=== PATIENT | female | born 1980 | race Caucasian/White ===

== ENCOUNTER → 2016-08-31 | Outpatient (CLI) | payer MEDICAID ==
[~2016-08-31] MED LIST: ALDACTONE100 MG PO; ALDACTONE25 MG PO; ALDACTONE50 MG PO; B COMPLEX1 EACH PO; CIPRO250 M1 PO; CIPROFLOXACIN750 MG PO; CORGARD20 MG PO; FOLIC ACID1 MG PO; K-TAB 10MEQ10 MEQ PO; LACTULOSE10 GM/15 M PO; LASIX40 MG PO; LEXAPRO10 MG PO; LOVENOX 10100 MG/1 M; LOVENOX 10100 MG/1 M SUB-Q; NIACIN250 M1 PO; PANTOPRAZOLE SO40 MG PO; PREDNISOLO15 MG/5 M1 PO; PRILOSEC20 MG PO; PROAMATINE5 MG PO; PROPRANOLOL HCL20 MG PO; PROTONIX40 MG PO; REGLAN10 MG PO; SEROQUEL25 MG PO; SLOW-MAG (64 MG1 TAB PO; THIAMINE HCL100 MG PO; VITAMIN B COMP1 EACH PO
== END | disposition disaster alternative care site (69) ==
LOC: GOPD 08-30
PROC: 0W9G3ZZ Drainage of Peritoneal Cavity, Percutaneous Approach (ICD-10-PCS; principal; 2016-08-31)
DX: K74.60 Unspecified cirrhosis of liver (principal); K72.90 Hepatic failure, unspecified without coma; K70.10 Alcoholic hepatitis without ascites
CPT/HCPCS: P9047

== ENCOUNTER → 2016-09-21 | Outpatient (CLI) | payer MEDICAID | END | disposition disaster alternative care site (69) | LOC: GOPD 13:00 | PROC: 0W9G3ZZ Drainage of Peritoneal Cavity, Percutaneous Approach (ICD-10-PCS; principal; 2016-09-21) | DX: K74.60 Unspecified cirrhosis of liver (principal); K72.90 Hepatic failure, unspecified without coma | CPT/HCPCS: P9047 ==

== ENCOUNTER 2016-10-02 17:55 | Inpatient (IN) | payer MEDICAID ==
[~2016-10-02] VITALS: Ht 154.9 cm; Wt 58.0 kg
--- NOTE | ~2016-10-02 | CON ---
PATIENT'S NAME: INDIA UMANA [facility] AGE: 36 Y [address] ROOM: [place] [address] LOCATION: GICU ADMIT DATE: 10/02/2016 Consultation DISCHARGE DATE: 10/05/2016 FAMILY PHYSICIAN: Karishma Luna MD ATTENDING PHYSICIAN: Husam Arias DATE OF CONSULTATION: 10/04/2016 REFERRING PHYSICIAN: Becky Allison MD LOCATION: ICU, Room 6215. REFERRING PROVIDER: Tom Damon M.D. CHIEF COMPLAINT: Palliative Care referral for patient support. HISTORY OF PRESENT ILLNESS: The patient is a 36-year-old female with a history of alcoholic cirrhosis with recurrent ascites and previous history of spontaneous bacterial peritonitis. The patient was admitted with abdominal pain and probable SBP. She also has a history of esophageal varices. She has been following with a physician at [facility] for this. The patient reports she has been sober for 2 months. She lives at home. She has 2 children, ages 14 and 17, and she works as a massage therapist. The patient complains of abdominal pain, reports that the Dilaudid has been helpful, though it does make her sleepy and give her some slurred speech. She denies nausea or vomiting. Reports that her appetite is very poor at the hospital. Since admission, she has only taken in sips of fluids and popsicles. She does report having diarrhea with lactulose and intermittently skips a dose at home. The patient does talk about how embarrassing it is for her to go out in public with her ascites and jaundice and voices multiple other concerns. Given her chronic illness, Palliative Care has been consulted for additional support. PREVIOUS OPERATIONS: 1. Multiple paracentesis. 2. Multiple EGDs. PAST MEDICAL HISTORY: 1. Alcoholic cirrhosis. 2. History of alcohol abuse. 3. Depression. 4. Esophageal varices. 5. Hyponatremia. PATIENT'S NAME: INDIA UMANA [facility] AGE: 36 Y [address] ROOM: [place] [address] LOCATION: GICU ADMIT DATE: 10/02/2016 Consultation DISCHARGE DATE: 10/05/2016 FAMILY PHYSICIAN: Karishma Luna MD ATTENDING PHYSICIAN: Husam Arias MEDICATIONS: Please see current MAR. ALLERGIES: NO KNOWN ALLERGIES. SOCIAL HISTORY: The patient is . Lives at home. She does have 2 children, ages 14 and 17, who are currently with their father. She has a history of cigarette and alcohol abuse. The patient reports that her last drink was approximately 2 months ago. Denies illegal drugs. Denies narcotic abuse. Does have a history of smoking cigarettes on occasion. FAMILY HISTORY: Mother approximately 18 months ago with COPD. She also has fibromyalgia as well as narcotic abuse disorder. Her father is alive and well. REVIEW OF SYSTEMS: GENERAL: The patient reports her appetite is extremely poor. She does try to drink Boost at home, since the hospitalization has only taken in sips and bites. Positive for fatigue. Denies recent fever, chills, or night sweats. HEENT: Denies changes in vision or hearing. No headaches. No sinus congestion. RESPIRATORY: Denies shortness of breath or cough. CARDIOVASCULAR: No chest pain, pressure, or palpitations. Denies orthopnea. No peripheral edema. GASTROINTESTINAL: No nausea or vomiting. Does report diarrhea with her lactulose. Denies blood in her stools. Denies difficulties chewing or swallowing. Reports positive for abdominal pain that is sharp and crampy at times. GENITOURINARY: Denies dysuria. MUSCULOSKELETAL: Denies joint swelling or joint pain. No back pain. Does report having falls at home. No recent injuries to her knowledge. NEUROLOGIC: No numbness or tingling. No dizziness, syncope, or seizures. INTEGUMENTARY: No rashes. Does have skinned up areas to her rojas from crawling on the carpet. PSYCHIATRIC: Positive for history of depression. Denies feeling overtly depressed. Denies insomnia. PHYSICAL EXAMINATION: VITAL SIGNS: Blood pressure 106/62, heart rate 95, temperature 97.8, respirations 17, and O2 saturations 99% on room air. GENERAL: Reveals a drowsy, though easily arousable, oriented, white female, who is lying in intensive care unit, ill appearing, does not appear to be in PATIENT'S NAME: INDIA UMANA [facility] AGE: 36 Y [address] ROOM: [id number] [place] [id number] LOCATION: GICU ADMIT DATE: 10/02/2016 Consultation DISCHARGE DATE: 10/05/2016 FAMILY PHYSICIAN: Karishma Luna MD ATTENDING PHYSICIAN: Husam Arias any distress. She is oriented x3, though does repeat herself at times. HEENT: Normocephalic and atraumatic. Pupils are equal and reactive to light. Sclerae are icteric. Conjunctivae are pale. Tongue and mucous membranes are dry. Dentition is adequate. CARDIOVASCULAR: Heart tones regular rate and rhythm. I am not able to note a murmur. She is slightly tachycardic. RESPIRATORY: Respirations are regular and nonlabored. Lung sounds are clear to auscultation bilaterally. I am not able to note any rales, rhonchi, or wheezes. GASTROINTESTINAL: Abdomen is rounded, distended. Bowel sounds are hypoactive. Tender to diffuse palpation. MUSCULOSKELETAL: No significant deformities. Peripheral pulses are strong and equal bilaterally. There is no clubbing, cyanosis, or edema. SKIN: Warm and dry. She does have diffuse jaundice and almost a greenish tint to her skin. She does also use a tanning bed frequently. NEUROLOGIC: Grossly intact. IMPRESSION AND PLAN: 1. Abdominal pain. Continue with p.r.n. morphine and Dilaudid as needed. 2. Ascites. 3. Code status. The patient is a full code. She does not have an advance directive or a living will. I visited with the patient, introduced the role of palliative care for additional support. Discussed her chronic conditions and her understanding of her condition. At this point, she does seem to have a fairly good understanding of what is going on and what she faces. I talked through some of her worries, concerns, and fears. She talks extensively about how difficult it is to be out in public with her jaundice and ascites, and try to maintain a normal life with working and caring for her children. I visited with the patient about her past history as well as her goals moving forward. She tells me that she is working towards evaluation for a possible transplant. She understands that she has to be sober for 6 months. Did also visit with the patient on the importance of getting an advance directive or a living will in place for anyone especially someone with chronic illness. She does tell me that she would want her father to be her power of patent attorney and if he is unable, then her older sister. In discussing this, she does become tearful and talks about how she wants to donate her body to science and how she wants to be cremated. Following this, the patient does talk about being worried about having her children see her on the ventilator, should something happen, helped the patient talk through this worry. She does tell me that she would not want to be kept alive on life support if she was not able to be aware enough to know her children and her surroundings. The patient does ask for help in completing [id number] paperwork later during the hospital stay when she is feeling a little bit better. Provided emotional support and PATIENT'S NAME: INDIA UMANA [facility] AGE: 36 Y [address] [place]OM: [id number] [address] LOCATION: [facility] ADMIT DATE: 10/02/2016 Consultation DISCHARGE DATE: 10/05/2016 FAMILY PHYSICIAN: Karishma Luna MD ATTENDING PHYSICIAN: Husam Arias active listening. The patient states that her goal is to get to liver transplant. She wants to fight for this and thinks that she can do it. Provided encouragement and support in regard to this. The patient denies any spiritual needs or any other concerns at this time. She is thankful for the visit and does ask for followup. Total visit was 50 minutes. Greater than 50% of this time was spent providing education and counseling. Thank you for allowing me to assist the patient and her family. ELIZABETH HANNA, ENRICO FOR STEF NULL MD DLS/modl /[id number] CC: Tom Damon MD d: 10/08/16 2148 t: 10/11/16 1132, CONSULTATION REPORT
--- NOTE | ~2016-10-02 | DS ---
PATIENT'S NAME: INDIA UMANA [facility] AGE: 36 Y [address] ROOM: [id number] [place], [place] [address] LOCATION: [facility] ADMIT DATE: 10/02/2016 Discharge Summary DISCHARGE DATE: 10/05/2016 FAMILY PHYSICIAN: Karishma Luna MD ATTENDING PHYSICIAN: Husam Arias PRIMARY DIAGNOSES: 1. Septic shock. 2. Other primary diagnoses include spontaneous bacterial peritonitis. 3. Alcoholic liver cirrhosis with massive ascites. 4. Protein-calorie malnutrition. 5. Chronic anemia from blood loss. 6. Hepatorenal syndrome. 7. Thrombocytopenia. 8. Chronic hyponatremia. 9. Hypoalbuminemia. PRINCIPAL PROCEDURES: Done for the patient include paracentesis and PowerGlide placement. Transfusion with 2 units of fresh frozen plasma. LABORATORY DATA: Lactic acid on admission was 3.2, prior to transfer was 2.3. WBC on admission was 13.5, highest level obtained was 15.5, prior to transfer was 12.2. H and H on admission were 10.5 and 30.4, prior to transfer were 8.2 and 23.9. Platelet on admission was 131, prior to transfer was 49. Creatinine on admission was 1.2, prior to transfer was 0.9. Sodium on admission was 128, prior to transfer was 133. BUN was stable at 17 throughout the hospital stay. Bicarb on admission was 18, prior to transfer was 15. Potassium as well was stable throughout the hospital stay and 3.8 upon admission. Liver function test a day after admission was AST 71, prior to transfer was 33; ALT was 68, prior to transfer was 39; alkaline phosphatase was 94 on admission, prior to transfer was 68. Total bilirubin on admission was 13.6, prior to transfer was 19.3. Phosphorus was 3.3. Direct bilirubin was 8.9. Albumin was 1.7 on admission. Magnesium on admission was 1.7, was repleted. INR on admission was 1.7, prior to transfer was 1.64. UA, color was lizett, pH 6.0, leukocytes 100, nitrite positive, wbc's 2 to 5, serum osmolality 270. Ascitic fluid analysis; yellow, wbc 746, neutrophil differential 83%, turbid 2+. Microbiology; blood culture x2 sets, no growth. Pleural fluid culture, no growth at 2 days. Urine culture, no growth at 2 days. RADIOLOGY: Abdominal ultrasound for drain. Ultrasound-guided paracentesis with drainage of about 4400 mL, about 3400 straw colored ascites was removed. HOSPITAL COURSE: For history of present illness, please take a look at the H and P, which was done by Dr. Arias. The patient was admitted to ICU PATIENT'S NAME: INDIA UMANA [facility] AGE: 36 Y [address] ROOM: [address] [address] LOCATION: GICU ADMIT DATE: 10/02/2016 Discharge Summary DISCHARGE DATE: 10/05/2016 FAMILY PHYSICIAN: Karishma Luna MD ATTENDING PHYSICIAN: Husam Arias for septic shock, which was thought secondary to a spontaneous bacterial peritonitis as a result of presenting symptoms of generalized abdominal pain and also on physical exam with generalized abdominal tenderness. So, she was started on Levophed, first day of the hospital stay, had a Gastroenterology consult and also was started on Rocephin 2 grams per peritonitis does. GI continued to follow up with the patient. By the next day of the hospital stay, the patient demand of pressors, had improved; however, she was still on pressors. She did have an abdominal paracentesis done with removal of 3400 mL of straw-colored ascitic tap. The analysis of the ascitic appeared to be a picture of spontaneous bacterial peritonitis and also given her clinical symptoms. Following the paracentesis, she was transfused with 4.5 grams of albumin. However, during her short stay, her hemoglobin continued to trickle down slowly. Her hemoglobin on admission was 10.2, prior to transfer was 8.2. However, throughout her hospital stay, she did not have any bowel movement and so we were unable to obtain stool for occult blood. Eventually, by the second day of hospital stay, she was successfully weaned off Levophed. Her white cell count had improved, but her complaint of abdominal pain still persisted. By the third day of hospital stay, she was ready to be transferred out of the ICU to [facility], however, given the fact the patient's total bilirubin was increasing and with worsening abdominal pain and also with associated decrease in her hemoglobin, they felt that the patient would be better if she was at a higher level of care and so they recommended for the patient either to be transferred to [facility] or for us to get an ID consult regarding the spontaneous bacterial peritonitis. However, we eventually settled for transfer to [facility]. The patient was accepted by Dr. Parra, the dance director. The plan was prior to transfer was for the patient to have another abdominal paracentesis done as the ascitic fluid had reaccumulated. However, as everything was set up for the patient to be transferred, this was postponed till when the patient gets to [facility] for the paracentesis to be done as not to further delay the patient's transportation while trying to get it done here. Vital signs were stable at the point of transfer and the patient was transferred to [facility]. MEDICATIONS ON TRANSFER: 1. Lexapro 5 mg p.o. daily. 2. Folic acid 1 mg p.o. daily. 3. Rocephin 2 grams IV twice daily. 4. Lactulose 30 mL p.o. q.6 hours. 5. Nadolol 20 mg p.o. daily. 6. Reglan 5 mg p.o. q.8 hours. 7. Protonix 40 mg IV. 8. Lidocaine. 9. Morphine 1 mg every 2 hours p.r.n. PATIENT'S NAME: INDIA UMANA [facility] AGE: 36 Y [address] ROOM: [place] [address] LOCATION: [facility] ADMIT DATE: 10/02/2016 Discharge Summary DISCHARGE DATE: 10/05/2016 FAMILY PHYSICIAN: Karishma Luna MD ATTENDING PHYSICIAN: Husam Arias MD VIKI ANGULO/evangelina /[id number] d: 10/05/162 t: 10/18/16 1641, DISCHARGE SUMMARY
--- NOTE | ~2016-10-02 | CON ---
PATIENT'S NAME: INDIA UMANA [facility] AGE: 36 Y [address] ROOM: [id number] [place], [place] [address] LOCATION: GICU ADMIT DATE: 10/02/2016 Consultation DISCHARGE DATE: FAMILY PHYSICIAN: NAEL JAIME MD ATTENDING PHYSICIAN: HAMZAH DAMON DATE OF CONSULTATION: 10/03/2016 REFERRING PHYSICIAN: CAROLINA DUMONT MD HOSPITAL CONSULTATION REFERRING PROVIDER: Tom Damon MD REASON FOR CONSULTATION: Alcoholic liver cirrhosis. HISTORY OF PRESENT ILLNESS: This is a pleasant 36-year-old female, who is well known to our clinic. She has a longstanding history of alcohol abuse, and decompensated alcoholic cirrhosis with refractory ascites. The patient also has had a history of spontaneous bacterial peritonitis and history of esophageal variceal banding ligation. The patient states over the past 2 to 3 days, she has not been feeling well with increasing abdominal distention. She was seen in the emergency room at [place] with acute abdominal pain, vomiting, loose stools, and hypotension. The patient did report some fever, chills prior to admission. She denies any hematemesis, melenic stool, or hematochezia. The patient was then transferred to [facility] for further workup. She will undergo an abdominal paracentesis with peritoneal fluid analysis though this is pending due to her receipt of INR. The patient states that she has been feeling significantly fatigued over the last few days. She also has experiences of greater heartburn over the last week. The patient does follow up with regarding her liver as she states that she has been sober for 2 months now. Complete liver transplant evaluation will not be done until 6 months sobriety. In review of records last known paracentesis was on 09/21/2016 with 4300 mL removed. Per review of record, she did also undergo an upper endoscopy on 06/19/2015 showing F1-2 mid esophageal varices with scarring at 25 cm in the esophagus. No banding was placed. No gastric varices were seen as well. She does have a history of esophageal variceal banding ligation though. The patient at home is on Lasix 40 mg, Cipro prophylactic for SBP, lactulose, and nadolol. She did state that over the last two days, she did discontinue her lactulose due to diarrhea though she does state her last bowel movement was yesterday morning. She currently has been admitted to intensive care secondary to septic shock and currently requiring Levophed for blood pressure support. The patient PATIENT'S NAME: INDIA UMANA [facility] AGE: 36 Y [address] ROOM: [place] [address] LOCATION: GICU ADMIT DATE: 10/02/2016 Consultation DISCHARGE DATE: FAMILY PHYSICIAN: NAEL JAIME MD ATTENDING PHYSICIAN: HAMZAH DAMON currently denies any chest pain, chest pressure, or shortness of breath. She does state that she feels "slow" and slightly foggy. PAST MEDICAL HISTORY: 1. Decompensated liver cirrhosis secondary to alcohol abuse. 2. History of bipolar disorder. 3. History of esophageal variceal banding ligation. 4. Hyponatremia. 5. History of spontaneous bacterial peritonitis, frequent paracentesis. PAST SURGICAL HISTORY: Last endoscopy was in May of 2015, with grade F1 varices seen, though not banded. She does have a history of esophageal variceal banding as she does undergo frequent paracentesis for refractory ascites. SOCIAL HISTORY: The patient does state that she has been sober for two months now. She does have two children at home. She denies any tobacco use on a regular basis though she does smoke cigarettes occasionally. She denies any illicit drug use. FAMILY HISTORY: The patient denies any family history pertinent, and she also denies any gastrointestinal diseases. ALLERGIES: HEPARIN CAUSED HEPARIN-INDUCED THROMBOCYTOPENIA. CURRENT MEDICATIONS: Please refer to the medication administration record. REVIEW OF SYSTEMS: A 10-point review of systems was completed. All were negative except for those identified in the History of Present Illness. PHYSICAL EXAMINATION: GENERAL: A very pleasant 36-year-old female, sitting in the chair, who appears to be in no acute distress. VITAL SIGNS: Temperature 98.1, pulse of 64, respirations of 16, blood pressure 91/57, and oxygen saturations 99% on room air. SKIN: Slightly icteric. Warm, dry. NECK: Soft and supple. HEENT: Head is normocephalic and atraumatic. Pupils are equal, round, and reactive to light. Sclerae are icteric. Oral mucosa is pink and dry. CARDIOVASCULAR: Regular. Normal S1 and S2. PATIENT'S NAME: INDIA UMANA [facility] AGE: 36 Y [address] ROOM: [id number] [place], [place] [address] LOCATION: [facility] ADMIT DATE: 10/02/2016 Consultation DISCHARGE DATE: FAMILY PHYSICIAN: NAEL JAIME MD ATTENDING PHYSICIAN: HAMZAH DAMON RESPIRATORY: Respirations even and unlabored. LUNGS: Clear to auscultation. ABDOMEN: Slightly firm, distended, and diffuse tenderness throughout her abdomen with palpation. Positive for ascites, diminished bowel sounds likely secondary to ascites. MUSCULOSKELETAL: No muscle weakness or joint tenderness. EXTREMITIES: No clubbing, cyanosis, or edema. NEUROLOGIC: The patient is positive for slight asterixis flap. She does answer questions appropriately though does appear to be slightly slow in answering her questions. LABORATORY DATA AND IMAGING STUDIES: Labs and Diagnostics: Lactate on admission was elevated at 3.2. White blood cell count of 14.9, hemoglobin of 9.5, hematocrit of 27.9, and platelets of 120,000. Chemistry panel includes a glucose of 103, BUN of 18, creatinine 1.1, sodium 129, potassium of 3.8, chloride of 102, CO2 of 14, albumin of 1.4, phosphorus of 4.3, and magnesium of 1.7. PT and INR are currently pending at this time. Liver enzymes are also pending at this time. ASSESSMENT AND PLAN: Again this is a very pleasant 36-year-old female, with decompensated liver cirrhosis secondary to alcohol abuse. The patient does have a history of spontaneous bacterial peritonitis and currently is on prophylaxis at home. She was admitted with acute abdominal pain with probable spontaneous bacterial peritonitis as well as severe sepsis. The patient will undergo paracentesis today. We will wait for INR and LFTs to calculate her MELD score and Child- Whitman score. The patient is in need of an upper endoscopy as her last endoscopy was completed in May 2015, with known varices. We will also wait for the patient's paracentesis to be completed for analysis of the peritoneal fluid. In regard to the patient's asterixis, I do question if the patient needs to be placed back on her lactulose. We will check an ammonia level at this time. She currently is on ceftriaxone for suspected spontaneous bacterial peritonitis as this needs to be continued. We also need to keep a close eye on her urine output in constant surveillance for hepatorenal. The patient is also recommended to continue follow up with [facility] for liver transplant evaluation. Thank you for this consultation. HORACIO BOLES APRN FOR CAROLINA DUMONT MD MMF/modl PATIENT'S NAME: INDIA UMANA [facility] AGE: 36 Y [address] ROOM: [place] [address] LOCATION: [facility] ADMIT DATE: 10/02/2016 Consultation DISCHARGE DATE: FAMILY PHYSICIAN: NAEL JAIME MD ATTENDING PHYSICIAN: HAMZAH DAMON /[id number] d: 10/03/16 1443 t: 10/09/16 1441, CONSULTATION REPORT
--- NOTE | ~2016-10-02 | HP ---
PATIENT'S NAME: [facility] AGE: 36 Y [address] ROOM: [place] [address] LOCATION: GICU ADMIT DATE: 10/02/2016 History & Physical DISCHARGE DATE: FAMILY PHYSICIAN: PHYSICIAN, UNKNOWN ATTENDING PHYSICIAN: HAMZAH DAMON DATE OF SERVICE: PRINCIPAL DIAGNOSIS: Severe sepsis with shock, spontaneous bacterial peritonitis. HISTORY OF PRESENT ILLNESS: This is a 36-year-old female with a long history of alcohol abuse and alcoholic cirrhosis and recurrent ascites as well as complications with esophageal varices, here from [facility] after she presented there earlier today with acute abdominal pain, vomiting, loose stools, and hypertension. The patient states that she has been feeling unwell with increased abdominal distention and pain over the past 2 to 3 days and particularly getting worse since last night. The patient reports subjective fever and chills at this time as well, however, denies any hematemesis, melena, or, hematochezia, but does report that abdominal pain is severe and is unusual for her. The patient gets frequent paracentesis done based on her symptoms, and she has had paracentesis done a couple of weeks ago. The patient does have a history of spontaneous bacterial peritonitis as well. Otherwise, the patient denies any cough, shortness of breath, any urinary symptoms. The patient also reports to me that her last drink was about 2 months ago. PAST MEDICAL HISTORY: Alcoholic cirrhosis, history of alcohol abuse, bipolar disorder, esophageal varices, hyponatremia. SOCIAL HISTORY: History of severe alcohol abuse. Her last drink was about 2 months ago. Smokes cigarettes occasionally. Denies any illicit drugs. FAMILY HISTORY: The patient denies history of cancer, diabetes, or heart disease in the family. REVIEW OF SYSTEMS: All systems were reviewed and were negative except as described in the HPI. PHYSICAL EXAMINATION: VITAL SIGNS: The patient's blood pressure is 86/52, heart rate 92, respiratory rate 21, saturating 95% on room air. PATIENT'S NAME: [facility] AGE: 36 Y [address] ROOM: [place] [address] LOCATION: CU ADMIT DATE: 10/02/2016 History & Physical DISCHARGE DATE: FAMILY PHYSICIAN: PHYSICIAN, UNKNOWN ATTENDING PHYSICIAN: HAMZAH DAMON GENERAL: An ill-appearing female, appears older than stated age, but is awake, alert, and oriented x3, however, lethargic appearing. HEENT: Diffuse scleral icterus and conjunctival pallor noted. SKIN: Diffuse jaundice. NEUROLOGIC: Grossly nonfocal. NECK: Supple. No areas of tenderness. No lymphadenopathy. CARDIOVASCULAR: Tachycardic. S1, S2 normal. CHEST: Clear to auscultation bilaterally. ABDOMEN: Distended, tender to diffuse palpation. Ascites demonstrated. Diminished bowel sounds. EXTREMITIES: Without edema. MUSCULOSKELETAL: No joint tenderness, swelling, or muscular tenderness noted. LABORATORY DATA: From [facility], the patient has sodium of 123. Exhibits no leukocytosis. All other labs reviewed and not significant. ASSESSMENT AND PLAN: 1. Severe sepsis with shock. Likely, source appears to be spontaneous bacterial peritonitis. We will treat under sepsis protocol with aggressive fluid resuscitation as well as Levophed drip to maintain a MAP of greater than 65. The patient has been started on antibiotics with ceftriaxone 2 g b.i.d. for empiric treatment of spontaneous bacterial peritonitis since awaiting for paracentesis to be done would not be ideal in this setting. However, we will go ahead and do therapeutic and diagnostic paracenteses as soon as possible but would not delay antibiotic treatment for that. We will also draw blood cultures, urine cultures as well. 2. Intractable ascites. This is related to her known alcoholic cirrhosis. The patient will get therapeutic paracenteses as above. 3. Alcoholic cirrhosis. The patient's last drink was 2 months ago per her report. We will continue management of possible spontaneous bacterial peritonitis as above. 4. Hyponatremia. The patient's sodium is 123 today. She does have a component of dehydration with this, and we will monitor sodium levels closely with IV volume resuscitation and replacement. 5. Esophageal varices. No signs and symptoms of bleeding noted with that. We will continue her beta markell therapy that she is on once her blood pressure is stable. 6. Bipolar disorder. We will resume her home medication as prescribed as well. 7. Severe protein-calorie malnutrition. We will put the patient on nutritional supplement as needed as her clinical course hopefully improves. 8. Long history of alcohol abuse. Last drink about 2 months ago. PATIENT'S NAME: [facility] AGE: 36 Y [address] ROOM: [address] [address] LOCATION: [facility] ADMIT DATE: 10/02/2016 History & Physical DISCHARGE DATE: FAMILY PHYSICIAN: PHYSICIAN, UNKNOWN ATTENDING PHYSICIAN: HAMZAH DAMON 9. Deep venous thrombosis prophylaxis. We will use SCDs and heparin 5000 units b.i.d. Platelets were in the 140s on today's check. MD ROXY MARIA/modl /[id number] D: [id number] T: [id number] HISTORY & PHYSICAL
[~2016-10-02 17:55] MED LIST changes: -B COMPLEX1 EACH PO; -CIPROFLOXACIN750 MG PO; -LOVENOX 10100 MG/1 M; -LOVENOX 10100 MG/1 M SUB-Q; -PANTOPRAZOLE SO40 MG PO; -PRILOSEC20 MG PO; -PROAMATINE5 MG PO; -REGLAN10 MG PO; -SEROQUEL25 MG PO; -SLOW-MAG (64 MG1 TAB PO; -THIAMINE HCL100 MG PO
[2016-10-02] MEDS ORDERED: REGLAN10 MG PO (20:09)
[2016-10-02 20:25] LABS: BASOPHIL % 0.1 %; HEMATOCRIT 30.4 % (33.0-46.0); HEMOGLOBIN 10.5 g/dL (11.0-15.0); IMMATURE GRANULOCYTE # 0.1 K/uL (0.0-0.3); IMMATURE GRANULOCYTE % 0.5 %; LYMPHOCYTE % 6.9 %; MCH 36.5 pg (27.0-34.0); MCHC 34.5 gm/dL (32.0-36.5); MCV 105.6 fl (83.0-98.0); MONOCYTE # 0.7 K/uL (0.0-1.0); MONOCYTE % 4.9 %; NEUTROPHIL # (ANC) 12.2 K/uL (1.8-7.8); NEUTROPHIL % 87.6 %; NRBC % 0.2 /100WBC (0-0.00); PLATELET COUNT 131 K/uL (150-450); RBC 2.88 M/uL (3.50-5.50); RDW-CV 15.3 % (11.9-14.6); WBC 13.9 K/uL (4.0-11.0)
[2016-10-02 20:36] LABS: ANION GAP 16.8 (10.0-19.0); CALCIUM 7.7 mg/dL (8.5-10.5); CREATININE 1.2 mg/dL (0.5-1.1); MAGNESIUM 1.7 mg/dL (1.8-2.6); PHOSPHORUS 3.5 mg/dL (2.5-4.9); POTASSIUM 3.8 mMol/L (3.7-5.1)
[2016-10-02 20:37] LABS: ALBUMIN 1.7 gm/dL (3.5-5.0)
[2016-10-03 00:11] LABS: CREATININE 1.2 mg/dL (0.5-1.1); PHOSPHORUS 4.1 mg/dL (2.5-4.9)
[2016-10-03 00:12] LABS: ALBUMIN 1.5 gm/dL (3.5-5.0); CALCIUM 7.3 mg/dL (8.5-10.5)
--- NOTE | 2016-10-03 05:17 | NUR ---
patient is a/o times 3 cooperative moves all extremities sleepy/fatigue,clear upper lungs sound diminished on the bases room air rr=16,c1zrh=35%,abdomen is distended and firm as result of ascites,levophed frip at 0.12 to keep map>65 follow up:continue to monitor patient's hemodynamic and respiratory status closely.
[2016-10-03 05:18] LABS: HEMOGLOBIN 9.3 g/dL (11.0-15.0); IMMATURE GRANULOCYTE # 0.1 K/uL (0.0-0.3); IMMATURE GRANULOCYTE % 0.5 %; LYMPHOCYTE # 1.5 K/uL (0.8-4.0); LYMPHOCYTE % 9.7 %; MCH 36.3 pg (27.0-34.0); MCHC 34.4 gm/dL (32.0-36.5); MCV 105.5 fl (83.0-98.0); MONOCYTE % 6.6 %; NEUTROPHIL # (ANC) 12.9 K/uL (1.8-7.8); NEUTROPHIL % 83.2 %; NRBC % 0.2 /100WBC (0-0.00); PLATELET COUNT 111 K/uL (150-450); RBC 2.56 M/uL (3.50-5.50); RDW-CV 15.6 % (11.9-14.6); WBC 15.5 K/uL (4.0-11.0)
[2016-10-03 05:35] LABS: CREATININE 1.1 mg/dL (0.5-1.1); MAGNESIUM 1.7 mg/dL (1.8-2.6); PHOSPHORUS 4.3 mg/dL (2.5-4.9); POTASSIUM 3.8 mMol/L (3.7-5.1)
[2016-10-03 05:36] LABS: ALBUMIN 1.4 gm/dL (3.5-5.0); ANION GAP 16.8 (10.0-19.0); CALCIUM 7.2 mg/dL (8.5-10.5)
[2016-10-03 09:18] LABS: BASOPHIL % 0.1 %; HEMATOCRIT 27.9 % (33.0-46.0); HEMOGLOBIN 9.5 g/dL (11.0-15.0); IMMATURE GRANULOCYTE # 0.1 K/uL (0.0-0.3); IMMATURE GRANULOCYTE % 0.5 %; LYMPHOCYTE # 1.5 K/uL (0.8-4.0); LYMPHOCYTE % 9.9 %; MCH 36.7 pg (27.0-34.0); MCHC 34.1 gm/dL (32.0-36.5); MCV 107.7 fl (83.0-98.0); MONOCYTE % 6.9 %; MPV 9.7 fl (9.4-12.4); NEUTROPHIL # (ANC) 12.3 K/uL (1.8-7.8); NEUTROPHIL % 82.6 %; NRBC % 0 /100WBC (0-0.00); PLATELET COUNT 120 K/uL (150-450); RBC 2.59 M/uL (3.50-5.50); RDW-CV 15.9 % (11.9-14.6); WBC 14.9 K/uL (4.0-11.0)
[2016-10-03 09:29] LABS: INR - (THERAPEUTIC) 1.77 (0.92-1.07); PROTIME 18.7 SECONDS (9.8-11.4)
[2016-10-03 09:59] LABS: TOTAL BILIRUBIN 13.6 mg/dL (0.0-1.5)
[2016-10-03 10:14] LABS: ALBUMIN 1.5 gm/dL (3.5-5.0); TOTAL PROTEIN 4.5 g/dL (6.0-8.4)
[2016-10-03 12:13] LABS: INR - (THERAPEUTIC) 1.82 (0.92-1.07); PROTIME 19.2 SECONDS (9.8-11.4)
--- NOTE | 2016-10-03 14:56 | NUR ---
Significant Event:A/O X 3, slow slurred speech. Moves all extremities to command. SBP changed from sitting 98 to standing 77. Does not report dizziness, "but does feel weak." Up to recliner with 2 SBA. Returned to bed for positioning comfort. NSR, HR 70's. Levo titrated down to 0.06 mcg/kg/min. "It hurts my abdomen to eat." Eats bites, likes ice and popsciles. Drinks very little fluids, "but likes cold fluid". Abdomen sevely distended, hypoactive bowel sounds, reports last BM was 10/02/16. Pain controlled with IV Dilaudid 0.2 mg last at 1215. Magnesium 2 gm given for serum MG+ of 1.7 and 10 mg Vitamin K IV and 1 unit FFP given for INR of 1.77 and 1.82. Reports abdomen is uncomfortable when moving. Lab values improving. Follow up: Paracentesis when INR < = 1.5.
[2016-10-03 15:21] LABS: HEMATOCRIT 25.2 % (33.0-46.0); HEMOGLOBIN 8.8 g/dL (11.0-15.0)
[2016-10-03 15:28] LABS: INR - (THERAPEUTIC) 1.61 (0.92-1.07)
[2016-10-03 17:06] LABS: PERITONEAL FLUID TURBIDITY 2+ (CLEAR)
[2016-10-03 18:03] LABS: % PERITONEAL FLUID MONO/MACRO 12 % (0-0); % PERITONEAL FLUID NEUT 83 % (0-25)
[2016-10-03 18:55] LABS: BLOOD URINE 25 /UL (NEGATIVE); COLOR URINE AMBER (YELLOW); GLUCOSE URINE NEGATIVE (NEGATIVE); KETONE URINE NEGATIVE (NEGATIVE); LEUKOCYTES URINE 100 /UL (NEGATIVE); NITRITE URINE POSITIVE (NEGATIVE); PROTEIN URINE 30 mg/dL (NEGATIVE); TURBIDITY URINE 2+ (CLEAR); UROBILINOGEN URINE 8 mg/dL (NORMAL)
[2016-10-03 19:10] LABS: RBC URINE 0-2 #/HPF (NEGATIVE)
[2016-10-03 19:14] LABS: BACTERIA URINE MODERATE (NEGATIVE); EPITHELIAL URINE NEGATIVE #/HPF (NEGATIVE); MUCUS URINE 1+ (NEGATIVE)
--- NOTE | 2016-10-04 03:55 | NUR ---
Significant Event: PATIENT IS A/OX3. HR'S 80'S-90'S. SBP 90'S. LEVO TO KEEP MAPS GREATER THAN 65. 25G OF ALBUMIN GIVEN DURING SHIFT FOR LOW UOP/LOW MAPS. AFEBRILE. NO BM DURING SHIFT. ABD DISTENDED/FIRM/TENDER. RARE BS. DIOP TO DD WITH LOW UOP, 250ML. DILAUDID GIVEN Q4HRS FOR PAIN. Follow up: WEAN LEVO
[2016-10-04 05:06] LABS: HEMATOCRIT 23.7 % (33.0-46.0); HEMOGLOBIN 8.1 g/dL (11.0-15.0); MCHC 34.2 gm/dL (32.0-36.5); MCV 108.2 fl (83.0-98.0); MPV 10.2 fl (9.4-12.4); RBC 2.19 M/uL (3.50-5.50); RDW-CV 16.2 % (11.9-14.6); WBC 12.9 K/uL (4.0-11.0)
[2016-10-04 05:07] LABS: PLATELET COUNT 50 K/uL (150-450)
[2016-10-04 05:28] LABS: ANION GAP 15.9 (10.0-19.0); BLOOD UREA NITROGEN 17 mg/dL (6-24); CALCIUM 7.9 mg/dL (8.5-10.5); CHLORIDE 104 mMol/L (96-110); CREATININE 0.9 mg/dL (0.5-1.1); ESTIMATED GFR (MDRD EQUATION) > 60; MAGNESIUM 2.1 mg/dL (1.8-2.6); POTASSIUM 3.9 mMol/L (3.7-5.1); SODIUM 131 mMol/L (135-145)
[2016-10-04 05:29] LABS: CO2 15 mMol/L (22-32)
[2016-10-04 06:06] LABS: ABSOLUTE NEUTROPHIL CT (ANC) 12.3 K/uL (1.8-7.8); LYMPHOCYTE # 0.4 K/uL (0.8-4.0); LYMPHOCYTE % 3 %; MONOCYTE # 0.3 K/uL (0.0-1.0); SEGMENTED NEUTROPHIL # 12.3 K/uL (1.8-7.8); SEGMENTED NEUTROPHIL % 95 %
--- NOTE | 2016-10-04 13:21 | NUR ---
Significant Event:A/O X 3. Lethargic, slurred speech, increased with IV Narcotics. HR 90's. SBP 100's, titrating IV Levo down to 0.06 mcg/kg/min at this time. Refuses to get up to chair or complete a standing weight. O2 sats > 90% on RA. Lungs clear/dim. Poor appetite, refuses PO nutrition, but will take sips of Ensure and bites of popsicles. Rare bowel sounds, no BM since reported BM on 10/02/16. "I haven't really eaten for weeks because it hurts too much." HGB down to 8.1 today. Skin is jaundiced/greenish brown. Reported tanning some, but ex reports "she suddenly turned this greenish color in the past few weeks." Puncture site in RLQ c/d/i gauze and transparent dressing. Complete bag bath, scabs to shins and front of both legs are washed and covered with moisture barrier. Started on IV Protonix today, DVT prophylaxis addressed, allergic to Heparin, will keep SDC'd on margie LE for now. Started on some home meds. Takes pills without problems. New palliative care consult. Ex is supportive at the bedside. Afebrile. Follow up:Hematest x 3. REmove abdominal dressing at 1600. Wean Levo.
--- NOTE | 2016-10-04 15:50 | NUR ---
Introduced self and role of care management to pt. She lives in [place] alone but has close family and friends. She has a father and ex and he has the 17 year old and 14 year old with him. I discussed insurance and she does not have any but states she has applied for Medicaid. I did ask about her etoh and has been sober for 2 months and she states she is on the right start and yes has been down to [facility] before. At this time she is very weak and unable to stand or eat very much. Will continue to follow.
--- NOTE | 2016-10-05 03:19 | NUR ---
Significant Event: A&Ox3. Pt drowsy speech slow and slightly slurred. Moves all extremities spontaneously and to command weak movement. On tele SR. SBP in 90s to low 100s goal to keep MAP >65 levo stopped at 1800. RA lungs clear and dime sats in upper 90s. Abdomin very distended and tender. Morphine given for pain. Mena low urine output. IV to L) wrist running NS at 75ml/hr. IV to R) AC SL. Follow up: Need hematest x3.
[2016-10-05 05:16] LABS: HEMATOCRIT 23.9 % (33.0-46.0); HEMOGLOBIN 8.2 g/dL (11.0-15.0); MCH 37.3 pg (27.0-34.0); MCHC 34.3 gm/dL (32.0-36.5); MCV 108.6 fl (83.0-98.0); MPV 10.4 fl (9.4-12.4); RDW-CV 16.4 % (11.9-14.6); WBC 12.2 K/uL (4.0-11.0)
[2016-10-05 05:17] LABS: PLATELET COUNT 49 K/uL (150-450)
[2016-10-05 05:40] LABS: ALK PHOS 68 IU/L (33-138); ALT 39 IU/L (12-78); AST 33 IU/L (10-40); BLOOD UREA NITROGEN 18 mg/dL (6-24); CALCIUM 8.1 mg/dL (8.5-10.5); CHLORIDE 105 mMol/L (96-110); CREATININE 0.9 mg/dL (0.5-1.1); ESTIMATED GFR (MDRD EQUATION) > 60; PHOSPHORUS 3.3 mg/dL (2.5-4.9); POTASSIUM 4.4 mMol/L (3.7-5.1)
[2016-10-05 05:41] LABS: ALBUMIN 1.9 gm/dL (3.5-5.0); ANION GAP 17.4 (10.0-19.0); CO2 15 mMol/L (22-32); SODIUM 133 mMol/L (135-145); TOTAL BILIRUBIN 19.3 mg/dL (0.0-1.5)
[2016-10-05 05:59] LABS: ABSOLUTE NEUTROPHIL CT (ANC) 11.6 K/uL (1.8-7.8); BANDED NEUTROPHIL # 2.8 K/uL (0.0-0.1); BANDED NEUTROPHILS % 23 %; LYMPHOCYTE # 0.6 K/uL (0.8-4.0); LYMPHOCYTE % 5 %; SEGMENTED NEUTROPHIL # 8.8 K/uL (1.8-7.8); SEGMENTED NEUTROPHIL % 72 %
[2016-10-05 09:27] LABS: PROTIME 19.4 SECONDS (9.8-11.4)
[2016-10-05 09:29] LABS: INR - (THERAPEUTIC) 1.84 (0.92-1.07)
[2016-10-05 12:29] LABS: INR - (THERAPEUTIC) 1.64 (0.92-1.07); PROTIME 17.3 SECONDS (9.8-11.4)
--- NOTE | 2016-10-05 13:32 | NUR ---
PATIENT TRANSFERRED ONTO STRETCHER FOR FLIGHT TO TRANSPORT TO [facility]. Report to Travon at [facility] at 1330. Patient getting transferred to room 5816. Report also given to flight nurse.
[2016-10-19] MEDS ORDERED: ALDACTONE25 MG PO (16:28)
[2016-10-19] MEDS ORDERED: SEROQUEL25 MG PO (16:31)
[2016-10-24] MEDS ORDERED: PRILOSEC20 MG PO (10:20)
[2016-10-24] MEDS ORDERED: PANTOPRAZOLE SO40 MG PO (10:21)
[2017-01-16] MEDS ORDERED: B COMPLEX1 EACH PO (14:59)
[2017-01-16] MEDS ORDERED: SLOW-MAG (64 MG1 TAB PO (15:00)
[2017-01-16] MEDS ORDERED: PROAMATINE5 MG PO ×2 (15:13→15:19)
[2017-01-16] MEDS ORDERED: LOVENOX 10100 MG/1 M SUB-Q (15:15)
[2017-01-16] MEDS ORDERED: THIAMINE HCL100 MG PO (15:20)
[2017-01-25] MEDS ORDERED: LOVENOX 10100 MG/1 M (08:41)
[2017-01-25] MEDS ORDERED: LOVENOX 10100 MG/1 M SUB-Q (08:42)
== END 2016-10-05 13:29 | disposition critical access hospital (66) | DRG 871 ==
LOC: GICU 18:40
PROVIDERS: Hospitalist; Internal Medicine Gastroenterology; ADMIT Internal Medicine
PROC: 0W9G3ZZ Drainage of Peritoneal Cavity, Percutaneous Approach (ICD-10-PCS; principal; 2016-10-02)
DX: A41.9 Sepsis, unspecified organism (principal); E43 Unspecified severe protein-calorie malnutrition; K76.7 Hepatorenal syndrome; R65.21 Severe sepsis with septic shock; K65.2 Spontaneous bacterial peritonitis; I85.00 Esophageal varices without bleeding; D69.6 Thrombocytopenia, unspecified; E87.1 Hypo-osmolality and hyponatremia; F31.9 Bipolar disorder, unspecified; I95.9 Hypotension, unspecified; K70.31 Alcoholic cirrhosis of liver with ascites; D50.0 Iron deficiency anemia secondary to blood loss (chronic); E86.0 Dehydration; E88.09 Other disorders of plasma-protein metabolism, not elsewhere classified; Z68.22 Body mass index [BMI] 22.0-22.9, adult
CPT/HCPCS: C1751; C9113; J0696; J1170; J2270; J3475; J7030; J7040; J7050; J7060; J7510; P9017; P9047

== ENCOUNTER → 2016-10-05 | Outpatient (CLI) | payer MEDICAID ==
[~2016-10-05] MED LIST changes: +B COMPLEX1 EACH PO; +CIPROFLOXACIN750 MG PO; +LOVENOX 10100 MG/1 M; +LOVENOX 10100 MG/1 M SUB-Q; +PANTOPRAZOLE SO40 MG PO; +PRILOSEC20 MG PO; +PROAMATINE5 MG PO; +REGLAN10 MG PO; +SEROQUEL25 MG PO; +SLOW-MAG (64 MG1 TAB PO; +THIAMINE HCL100 MG PO
== END | disposition disaster alternative care site (69) ==
LOC: GAIR 13:34
DX: A41.9 Sepsis, unspecified organism (principal); K70.31 Alcoholic cirrhosis of liver with ascites; K72.90 Hepatic failure, unspecified without coma; I10 Essential (primary) hypertension; K65.8 Other peritonitis; R10.9 Unspecified abdominal pain; R19.7 Diarrhea, unspecified; R11.2 Nausea with vomiting, unspecified; Z79.899 Other long term (current) drug therapy; Z79.2 Long term (current) use of antibiotics; Z88.8 Allergy status to other drugs, medicaments and biological substances
CPT/HCPCS: A0422; A0431; A0436; J2405

== ENCOUNTER → 2016-10-24 | Outpatient (CLI) | payer MEDICAID | END | disposition disaster alternative care site (69) | LOC: GOPD 10-23 | DX: K70.31 Alcoholic cirrhosis of liver with ascites (principal); K70.11 Alcoholic hepatitis with ascites | CPT/HCPCS: J2001; P9047 ==

== ENCOUNTER → 2016-11-07 | Outpatient (CLI) | payer MEDICAID | END | disposition disaster alternative care site (69) | LOC: GOPD 11-06 | PROC: 0W9G3ZZ Drainage of Peritoneal Cavity, Percutaneous Approach (ICD-10-PCS; principal; 2016-11-07) | DX: K70.31 Alcoholic cirrhosis of liver with ascites (principal) | CPT/HCPCS: J2001; P9047 ==

== ENCOUNTER 2016-11-08 09:18 | Inpatient (IN) | payer MEDICAID ==
[~2016-11-08] VITALS: Ht 157.5 cm; Wt 55.0 kg
--- NOTE | ~2016-11-08 | ER ---
PATIENT'S NAME: [facility] AGE: 36 Y [address] ROOM: [place] [address] LOCATION: GICU ADMIT DATE: 11/08/2016 ER/Outpatient Report DISCHARGE DATE: FAMILY PHYSICIAN: NAEL JAIME MD ATTENDING PHYSICIAN: Thanh GUZMAN CHIEF COMPLAINT: Abdominal pain. HISTORY OF PRESENT ILLNESS: The patient has a history of decompensated cirrhosis and ascites. She had a therapeutic paracentesis yesterday, and has developed significant abdominal pain and vomiting since then. She denies any fever. The pain is on the right side and radiates to the left side. This is untypical for her usual abdominal pain from her ascites. She did get albumin yesterday. She states that her normal blood pressure is about 90/60. She is otherwise feeling okay. No interventions have really been tried at this time. PAST MEDICAL HISTORY: Documented on the record and reviewed by me. SOCIAL HISTORY: Documented on the record and reviewed by me. MEDICATIONS: Documented on the record and reviewed by me. ALLERGIES: DOCUMENTED ON THE RECORD AND REVIEWED BY ME. REVIEW OF SYSTEMS: All systems were reviewed and are negative except as noted in the HPI. PHYSICAL EXAMINATION: VITAL SIGNS: Blood pressure was 81/50, pulse was 95, respiratory rate was 20, temperature was 99.0, and SpO2 was 100% on room air. GENERAL: Age-appropriate female, frail appearance, and slightly older appearance than stated age. NEUROLOGIC: Awake and alert. GCS is 15. No focal deficits. No asymmetry. No encephalopathy. HEENT: Normocephalic and atraumatic. Eyes are PERRL. Oropharynx is clear. NECK: Supple. Trachea is midline. CHEST: Heart is regular rate and rhythm with no murmurs. LUNGS: Clear to auscultation bilaterally with no rhonchi, wheezes, or rales. PATIENT'S NAME: [facility] AGE: 36 Y [address] ROOM: [place] [address] LOCATION: GICU ADMIT DATE: 11/08/2016 ER/Outpatient Report DISCHARGE DATE: FAMILY PHYSICIAN: NAEL JAIME MD ATTENDING PHYSICIAN: Thanh GUZMAN GASTROINTESTINAL: The abdomen is diffusely tender with no rebound, guarding, or masses. Slightly distended. BACK: Normal to inspection and palpation. EXTREMITIES: Warm and well perfused. SKIN: There are multiple areas of contusions and telangectasias and ecchymosis consistent with elevated INR and history of low platelets in the setting of liver failure. The patient's abdominal wounds do appear to be relatively well healed except for the periumbilical region, which does have some fibrinous material at the base. No areas of erythema or purulent material. RECTAL: A small external hemorrhoid. No active bleeding. Stool is yellow, loose, and mucousy. No formed stool in the rectal vault. No gross blood. LABORATORY DATA AND X-RAYS: Blood Gas: The pH is 7.39, pCO2 is 22, pO2 is 82, bicarb is 13.3, CO2 content is 14, base excess is -9.7, and saturation is 96% on room air. Blood type is A negative. Peritoneal fluid is yellow with turbidity. Red blood cell count of 1000 and white blood cell count of 7542. Procalcitonin was 0.85. CMS: Sodium of 130, potassium of 4.5, chloride of 101, CO2 of 15, anion gap of 14, calcium of 8.0, BUN of 10, creatinine of 1.7, GFR of 34, total bilirubin of 6.3, alkaline phosphatase of 68, AST of 44, and ALT of 20. White count is 30.7 up from 7.7 on October 23, hemoglobin is 9.6, and platelets are 223. INR was 1.71. Lactate is 3.7. Fecal occult blood is positive. Chest X-ray: No abnormalities. Central line was in good position. IMPRESSION: 1. Septic shock secondary to spontaneous bacterial peritonitis. 2. Spontaneous bacterial peritonitis. 3. Anemia, acute versus chronic. 4. Azotemia. 5. Hyperbilirubinemia. 6. Metabolic acidosis with lactic acidemia, mild. 7. Hyponatremia. 8. Elevated AST. EMERGENCY DEPARTMENT COURSE: The patient was seen and evaluated at bedside. Presumed SBP was pursued. No other source of infection based on symptoms. The patient received blood cultures, and a 30 mL/kg bolus was initiated. Based on her blood pressure and recent history, I had concerns for sepsis upon her presentation. With the receipt of her lactate being elevated in the setting of marked leukocytosis PATIENT'S NAME: [facility] AGE: 36 Y [address] ROOM: [id number] [place], [place] [address] LOCATION: [facility] ADMIT DATE: 11/08/2016 ER/Outpatient Report DISCHARGE DATE: FAMILY PHYSICIAN: NAEL JAIME MD ATTENDING PHYSICIAN: Thanh GUZMAN and a diagnostic paracentesis, the time of septic diagnosis was approximately 09:45. The agreed upon time of sepsis diagnosis was 09:30. Initial lactate was drawn at 09:30 as well. The patient was determined to be in septic shock after completion of the fluid boluses with persistent hypotension. The patient had persistent mental status without decline. The patient was given an albumin bolus in addition to Solu-Cortef and Levophed. A central line was placed, and the chest x-ray confirmed appropriate placement. The patient remained stably unstable, and was taken to the ICU for further evaluation and treatment. CRITICAL CARE TIME: One hour (60 minutes) of critical care time was spent on this patient's evaluation and patient re-evaluation, ordering fluid boluses, ordering and interpreting labs including peritoneal fluid analysis, consult of providers, review of medical records, and admission to the Intensive Care Unit. PROCEDURE NOTE: 1. Paracentesis: Ultrasound was used to identify a pocket amenable to paracentesis in the left lower quadrant. Care was taken to avoid vessels. The left lower quadrant was prepped using ChloraPrep, and 2 mL of lidocaine without epinephrine were used to anesthetize the skin in a Z- track manner using sterile technique. A 20-gauge needle was advanced using Z-track technique into the peritoneum, and 60 mL of a turbid yellow fluid were aspirated. The needle was withdrawn. The skin was allowed to go back to its original position, and there was minimal bleeding and no leakage of fluid at that site. The patient tolerated the procedure well. 2. Central Line Placement: Ultrasound was used to identify the right IJ. It was easily identified. The patient was deemed appropriate. The appropriate consents were obtained. A time-out was taken, and the patient was deemed appropriate and we proceeded. The area was prepped with chlorhexidine. The patient was draped head-to-toe per usual protocols. Sterile technique was used. Under ultrasound guidance, I identified the internal jugular. I accessed the vessel with a Seldinger technique. The wire was advanced without difficulty. Ultrasound visualized the wire in the internal jugular. The skin was next nicked then dilated, and the IJ triple-lumen catheter was advanced into the IJ after ensuring that all lumens were flushed. It was advanced to 15 cm and secured. All lumens flushed and markus easily. The area was given a sterile bandage. The patient tolerated the procedure well. Post-procedural chest x-ray was obtained, and found to be with good placement. No pneumothorax was appreciated. Line was verified. PATIENT'S NAME: [facility] AGE: 36 Y [address] ROOM: [place] [address] LOCATION: [facility] ADMIT DATE: 11/08/2016 ER/Outpatient Report DISCHARGE DATE: FAMILY PHYSICIAN: NAEL JAIME MD ATTENDING PHYSICIAN: Thanh GUZMAN MD TAMI SHEN/evangelina /[id number] d: 11/09/16 0119 t: 11/19/16 0704, OUTPATIENT REPORT
--- NOTE | ~2016-11-08 | HP ---
PATIENT'S NAME: INDIA UMANA [facility] AGE: 36 Y [address] ROOM: [place] [address] LOCATION: GICU ADMIT DATE: 11/08/2016 History & Physical DISCHARGE DATE: FAMILY PHYSICIAN: NAEL JAIME MD ATTENDING PHYSICIAN: Thanh GUZMAN DATE OF SERVICE: CHIEF COMPLAINT: Abdominal pain. HISTORY OF PRESENT ILLNESS: The patient is a 36-year-old female with past medical history of liver cirrhosis secondary to alcohol use, and recent history of peptic ulcer disease, requiring surgical intervention in [place], who presents here with abdominal pain. The patient reports that she had a therapeutic paracentesis yesterday and was feeling better after her therapeutic paracentesis. However, she reports of events of 10 episodes of nonbloody diarrhea and few episodes of nausea and vomiting, accompanied by diffuse abdominal pain. She reports that abdominal pain is diffuse, sharp, and exacerbated by palpation of the abdomen. She reports the abdominal pain is 6/10. The patient denies fever, chills, chest pain, shortness of breath, bloody diarrhea, productive cough, or hematemesis. The patient also reports of dizziness, especially when she stands up from a sitting position. Of note, the patient was recently admitted to the hospital in September due to perforated gastric ulcer and was transferred to [place] and has had surgery. The patient also reports that she has been off alcohol since July and is not currently on liver transplant list as she needs to be off alcohol for 6 months. PAST MEDICAL HISTORY: 1. Liver cirrhosis. 2. Peptic ulcer disease. PAST SURGICAL HISTORY: 1. Gastric ulcer surgery. 2. EGDs. FAMILY HISTORY: Mother has emphysema and reports that father is healthy. Reports that grandfather of heart disease. 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 She is and have two kids, 14-year-old and 17-year-old. PATIENT'S NAME: INDIA [facility]MANA [facility] AGE: 36 Y [address] ROOM: [place] [address] LOCATION: GICU ADMIT DATE: 11/08/2016 History & Physical DISCHARGE DATE: FAMILY PHYSICIAN: NAEL JAIME MD ATTENDING PHYSICIAN: Thanh GUZMAN MEDICATIONS: Currently being reconciled. REVIEW OF SYSTEMS: All systems have been reviewed and are negative except for what I mentioned in the HPI. PHYSICAL EXAMINATION: VITAL SIGNS: Temperature 99.0 degree Fahrenheit, blood pressure 72/40, heart rate 95, respiratory rate 20, and saturating 93% on room air. GENERAL APPEARANCE: The patient is icteric, lying comfortably on the bed. The patient does not necessarily look toxic. HEENT: Head; normocephalic and atraumatic. Eyes; sclerae icteric. Nose; no nasal discharge. Mouth; moist oral mucosa. CHEST: Clear to auscultation bilaterally. HEART: Regular rate and rhythm. No murmurs, rubs, or gallops. ABDOMEN: Old surgical scars. Diffuse mild tenderness on palpation. No guarding. No rebound. Bowel sounds active. SKIN: Jaundiced, not around the face, and warm to touch. No obvious lesion. AGRICULTURE SPECIALIST: Alert and oriented x3. Motor and sensory grossly intact. LABORATORY DATA: Lactate of 3.7, pH of 7.39, pCO2 of 22, and a bicarbonate of 13.3. White blood cell count of 30, hemoglobin of 9.6, hematocrit of 28.8, and platelets of 223,000 with 10% bandemia. BUN of 10, creatinine 1.7, sodium 130, potassium 4.5, glucose of 84, and total bilirubin of 6.3. AST of 44, ALT of 20, and INR of 1.71. Prolactin of 0.85. Peritoneal fluid shows white blood cell count of 7542. ASSESSMENT AND PLAN: 1. Septic shock. The patient is a 36-year-old female with history of alcoholic liver cirrhosis, who presents here with septic shock most likely secondary to spontaneous bacterial peritonitis. The patient is presenting with abdominal pain. Blood pressure in the 70s. The patient has received 30 mL/kg of fluid and still hypotensive. Peritoneal fluid analysis shows a white blood cell count of 7000. Blood cultures have already been taken in the emergency department and also fluid culture is pending. The patient already received ceftriaxone 2 g IV. We will change to cefepime 2 g q.8. The patient also was on recent prednisone and has been on prednisone for 2 months and was recently tapered off. We will start the patient on Solu-Cortef 50 mg t.i.d. for possible help with adrenal insufficiency, if there is any. The patient already received 30 mL/kg. We will start the patient on 1.5 g/kg of albumin as indicated for spontaneous bacterial peritonitis. We will also continue IV fluids with half normal saline with 100 mL per hour and start the patient on PATIENT'S NAME: INDIA [facility]MANA [facility] AGE: 36 Y [address] ROOM: [address] [address] LOCATION: [facility] ADMIT DATE: 11/08/2016 History & Physical DISCHARGE DATE: FAMILY PHYSICIAN: NAEL JAIME MD ATTENDING PHYSICIAN: Thanh GUZMAN Levophanne-marie. To acquire central venous catheter for Levophed use. We will also acquire Clostridium difficile stools as patient is on ciprofloxacin prophylaxis for spontaneous bacterial peritonitis and has had several bouts of diarrhea. We will start the vancomycin p.o. 120 mg q.6 hour until Clostridium difficile is negative. If Clostridium difficile is negative, we will discontinue that medication. I have discussed the case with Dr. Canales, our Gastroenterology specialist. 2. Acute kidney injury. The patient is presenting with a creatinine of 1.7. Etiology is most likely secondary to prerenal. We will discontinue patient's diuretic medication. To start the patient on IV fluids and albumin. However, hepatorenal syndrome was also entertained, however, its a diagnosis of exclusion. We will continue to hydrate and give albumin, and follow the patient's EMS closely. Discussed the case with Dr. Noyola. Nephrology, Dr. Noyola is on board. 3. Liver cirrhosis, decompensated. The patient has liver cirrhosis secondary to alcohol use. MELD score is 28 with 19.63 months mortality. The patient is currently not on liver transplant, last drink in July. We will assess the patient closely, and if the patient appears to be decompensated especially from hepatorenal syndrome, we will try to transfer the patient to outside facility to [place] where she can possibly get liver transplant. 4. Severe protein-calorie malnutrition, etiology most likely secondary to liver cirrhosis. To continue to be seen by dietitian. 5. Spontaneous bacterial peritonitis. Please see problem #1. Greater than 60 minutes were spent in the patient's care. We will admit the patient to ICU. Assessment and plan was discussed with Dr. Frank and Dr. Noyola, and also Dr. Canales. Code status on admission; full code. MD JUAN MATHUR/evangelina /[id number] D: [id number] T: [id number] HISTORY & PHYSICAL
--- NOTE | ~2016-11-08 | CON ---
PATIENT'S NAME: INDIA UMANA [facility] AGE: 36 Y [address] ROOM: [address] [place], [place] [address] LOCATION: GICU ADMIT DATE: 11/08/2016 Consultation DISCHARGE DATE: FAMILY PHYSICIAN: NAEL JAIME MD ATTENDING PHYSICIAN: Thanh GUZMAN DATE OF CONSULTATION: 11/08/2016 REFERRING PHYSICIAN: Fam Walker MD REASON FOR CONSULTATION: Liver cirrhosis and abdominal pain. HISTORY OF PRESENT ILLNESS: This is a 36-year-old female, who is well known to our Gastroenterology Service. The patient has a past medical history of liver cirrhosis secondary to alcohol use and recent history of perforated peptic ulcer disease, requiring laparotomy, completed in [place]. The patient reports that she had a therapeutic paracentesis on November 07, 2016. At that time, 4500 mL were removed. She reports events of 10 episodes of nonbloody diarrhea with a few episodes of nausea and vomiting without hematemesis. This was accompanied with diffuse abdominal pain. As the pain intensified over the evening, the patient presented to the emergency room. A diagnostic tap was performed that was positive for spontaneous bacterial peritonitis. The patient also was found to be hypotensive in the emergency room as fluid resuscitation and albumin was unsuccessful. At that point, I am going to put in a central line and put her on vasopressors for her hypotension. The patient does report some dizziness as well as a "feeling" like she is going to faint. She was again recently admitted in September due to perforated gastric ulcer requiring laparotomy in [place]. The patient states that she has been off alcohol since July. She currently is awaiting liver transplant evaluation. She states that she has had a little fogginess at home. She denies any current chest pain, chest pressure, or shortness of breath. PAST MEDICAL HISTORY: Liver cirrhosis secondary to alcohol use and history of peptic ulcer disease. PAST SURGICAL HISTORY: Gastric ulcer surgery in [place] in September 2016, requiring laparotomy and multiple upper endoscopies. 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 She is and has two kids. She again states that she has not had any alcohol since July 2016. PATIENT'S NAME: INDIA UMANA [facility] AGE: 36 Y [address] ROOM: [id number] [place], [place] [address] LOCATION: [facility] ADMIT DATE: 11/08/2016 Consultation DISCHARGE DATE: FAMILY PHYSICIAN: NAEL JAIME MD ATTENDING PHYSICIAN: Thanh GUZMAN FAMILY HISTORY: The patient's mother had emphysema and alcoholism. The patient's father is healthy. She does report that her grandfather of heart disease. ALLERGIES: HEPARIN. CURRENT MEDICATIONS: Please refer to the medication administration record. REVIEW OF SYSTEMS: All point review of systems was completed. All were negative except for those identified in the history of present illness. PHYSICAL EXAMINATION: GENERAL: A pleasant 36-year-old female, who appears to be in no acute distress. VITAL SIGNS: Temperature 97.7, pulses 76, respirations of 24, blood pressure 106/64, and oxygen saturations 100% on room air. SKIN: [place], warm, and dry. Skin is icteric. HEENT: Head is normocephalic and atraumatic. Pupils are equal, round, and reactive to light. Sclerae are mildly icteric. Oral mucosa is pink and moist. No thyromegaly. NECK: Soft and supple. CARDIOVASCULAR: Regular. Normal S1 and S2. RESPIRATORY: Respirations are even and unlabored. LUNGS: Clear to auscultation. ABDOMEN: Soft, round, and mildly distended. Positive for ascitic fluid as well as tender throughout with palpation. Bowel sounds are positive x4 quadrants. MUSCULOSKELETAL: No muscle weakness or atrophy. EXTREMITIES: No clubbing, cyanosis, or edema. NEUROLOGIC: Grossly nonfocal though the patient does have apparent flap. LABORATORY DATA AND IMAGING STUDIES: On evaluation to [facility]'s emergency room, the patient had a white blood cell count of 30.7, hemoglobin of 9.6, hematocrit of 28.8, and platelets of 223. Chemistry panel included a glucose of 106, BUN 11, creatinine 1.6, sodium 132, potassium of 4.0, chloride of 105, CO2 of 14, albumin of 3.3, AST of 21, ALT of 13, alkaline phosphatase of 44, and total bilirubin was 4.9. ProTime of 23.2, INR is 2.19, and PTT of 92. Again, a diagnostic tap was completed showing cultures as negative though white blood cell counts were almost 8000 for positive spontaneous bacterial peritonitis. ASSESSMENT AND PLAN: PATIENT'S NAME: INDIA UMNAA [facility] AGE: 36 Y [address] ROOM: [id number] [place], [place] [address] LOCATION: GICU ADMIT DATE: 11/08/2016 Consultation DISCHARGE DATE: FAMILY PHYSICIAN: NAEL JAIME MD ATTENDING PHYSICIAN: Thanh GUZMAN Again, this is a very pleasant 36-year-old female, who is well known to our Gastroenterology Services. 1. The patient's MELD score is 28 at this time. [facility] has been notified of her admission as she does have a slotted appointment to meet with Hepatology in November of 2016. She may need to be transferred pending her course. 2. Liver cirrhosis, secondary to alcohol use, decompensated. The patient has had a history of esophageal varices as well as spontaneous bacterial peritonitis and encephalopathy. The patient currently is awaiting transplant evaluation as her sobriety is at 3 months at this time. Continue current medications. 3. Spontaneous bacterial peritonitis. The patient will be placed on cefepime 2 g IV every 8 hours. The patient will be monitored in regard to her abdominal pain for relief. 4. Septic shock, per hospitalist secondary to spontaneous bacterial peritonitis. The patient will be admitted to intensive care unit for vasopressors as well as hypotension control. 5. Acute kidney injury. Nephrology has been consulted. The patient's creatinine on admission was 1.7, likely secondary to prerenal. We do recommend discontinuing the patient's diuretic medications at this time and continue having Nephrology follow. HORACIO BOLES APRN FOR FAM WALKER MD MMF/modl /[id number] d: 11/09/16 1229 t: 12/03/16 0859, CONSULTATION REPORT
--- NOTE | ~2016-11-08 | CON ---
PATIENT'S NAME: INDIA UMANA [facility] AGE: 36 Y [address] ROOM: [address] [address] LOCATION: GICU ADMIT DATE: 11/08/2016 Consultation DISCHARGE DATE: FAMILY PHYSICIAN: NAEL JAIME MD ATTENDING PHYSICIAN: Thanh CONKLIN DATE OF CONSULTATION: 11/08/2016 REFERRING PHYSICIAN: Trinh Canales MD REASON FOR CONSULTATION: Elevated BUN and creatinine. HISTORY OF PRESENT ILLNESS: The patient is a 36-year-old white female with a history of alcoholic cirrhosis. She does have evidence of hepatic failure. Her baseline bilirubin is around 6.0. She usually has a large volume paracenteses once a month. Her most recent large volume paracenteses were yesterday morning and apparently approximately 6 L of fluid was removed, but she did receive intravenous albumin. The patient reports that when she went home, she felt tired. At night, she was starting to have abdominal pain. She was having nausea and vomiting for the last two days. She lost 20 pounds over the last 1 year. The patient is normally on ciprofloxacin as prophylaxis for spontaneous bacterial peritonitis. She came in the emergency room with more abdominal pain. Her blood pressure is low systolic in 60s. Her baseline systolic blood pressure 90s to 100. She denies taking any nonsteroidal BENITEZ-2 inhibitors. Baseline creatinine was 0.9, now it is up to 1.7. There is a concern about hepatorenal syndrome and I have been asked to see her for a Nephrology consultation. The patient had a peritoneal fluid check that has thousands of WBCs, so she does have peritonitis. She did not notice any change in the urine output. PAST MEDICAL HISTORY: Alcoholic cirrhosis, bleeding from gastric ulcer, bipolar disorder, esophageal varices, and history of hyponatremia. PAST SURGICAL HISTORY: She recently had a laparotomy because of bleeding gastric ulcer. SOCIAL HISTORY: She lives at home with her two teenage children. 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 No history of tobacco. She has been sober for the last three months. FAMILY HISTORY: No family history of kidney disease or dialysis. PATIENT'S NAME: INDIA UMANA [facility] AGE: 36 Y [address] ROOM: [id number] [place], [place] [address] LOCATION: [facility] ADMIT DATE: 11/08/2016 Consultation DISCHARGE DATE: FAMILY PHYSICIAN: NAEL JAIME MD ATTENDING PHYSICIAN: Thanh CONKLIN ALLERGIES: NO KNOWN DRUG ALLERGIES. PRESENT MEDICATIONS: She takes ciprofloxacin 500 mg p.o. every week. REVIEW OF SYSTEMS: GENERAL: She denies any fever at this time, but she reports that her temperature may have been on 100. She feels tired. HEENT: Denies any sore throat or sinus congestion. CARDIOVASCULAR: Denies any chest pain or dyspnea on exertion. RESPIRATORY: Denies any cough or sputum production. GASTROINTESTINAL: She has been having nausea, vomiting, and poor appetite for the last two days and she is having abdominal pain. : Denies any dysuria or frequency. MUSCULOSKELETAL: Denies any joint pain or swelling. SKIN: Denies any rash or pruritus. IMMUNOLOGIC: Denies any allergies or hay fever. LYMPHATIC/HEMATOLOGIC: Denies any lymph node enlargement or easy bruising. ENDOCRINE: Denies any heat or cold intolerance. PSYCHIATRIC: Denies any sadness, crying spells, poor concentration, or panic attack. LABORATORY DATA: Blood work shows ABG: PH of 7.39, PCO2 of 22, PO2 of 82, and bicarbonate of 14. WBC 30.7, hemoglobin 9.6, hematocrit 28.8, platelet count of 223. Glucose 84, BUN10, creatinine 1.7. Sodium 130, potassium 4.5, chloride 101, bicarb of 15, calcium 8.0, albumin 2.5. Estimated GFR of 34. PT 18, INR 1.7. Procalcitonin level of 0.85. Peritoneal fluid shows RBC of 1000 and WBC of 7542. Lactic acid level of 3.7. PHYSICAL EXAMINATION: GENERAL: This a 36-year-old, lean and thin white female lying in the hospital bed, looks pale, and is in [id number]-jjyjauvk distress. VITAL SIGNS: Afebrile, pulse is 92, systolic blood pressure is 68, diastolic of 40, respiratory rate of 22. HEENT: Head is normocephalic. Pupils are round and equal. Normal eyelids and icteric conjunctivae. Oral cavity clear. Dry mucosa. Tongue is icteric as well. Trachea central. No thyromegaly. Flat jugular veins. No bruit. HEART: Sounds are audible in all the areas without any gallop or murmur. There is no pericardial rub. Pulses regular. LUNGS: Bilaterally clear to auscultate anteriorly. No intercostal retraction. ABDOMEN: Has a ventral scar with coin-size area of showing and overall wound possibly some collection of pus. PATIENT'S NAME: INDIA UMANA [facility] AGE: 36 Y [address] ROOM: [facility] [place] [address] LOCATION: [facility] ADMIT DATE: 11/08/2016 Consultation DISCHARGE DATE: FAMILY PHYSICIAN: NAEL JAIME MD ATTENDING PHYSICIAN: Thanh CONKLIN EXTREMITIES: She has clubbing, but no sinuses. SKIN: She has a petechiae all over her extremities and her abdomen. NEUROLOGIC: She is alert and grossly nonfocal. HIGHER PSYCHIATRIC FUNCTION: She has normal speech and memory. LYMPHATICS: Did not examine lymphatics. ASSESSMENT: 1. Acute kidney injury. Baseline creatinine was less than 1 and now is 1.7. Most likely this is prerenal, but she cannot rule out possibility of hepatorenal syndrome. 2. Hyponatremia, probably because of cirrhotic physiology. 3. Hypoalbuminemia. 4. Peritonitis. 5. Low bicarbonate. The patient has a pH of 7.39. She probably has chronic respiratory alkalosis with metabolic acidosis. During this hospitalization, the patient is noted to have anion gap of 18.5 with a low albumin of 2.5 and lactic acid level is more than 3. 6. Alcoholic cirrhosis. 7. History of gastric ulcer and gastrointestinal bleed. 8. History of large volume paracenteses. PLAN: I agree with intravenous volume to raise the systolic blood pressure to her baseline which is 190. She is receiving intravenous albumin at this time. I will give her maintenance fluid with half-normal saline at 75 mg/L of sodium bicarbonate to run at a rate of 100 mL/h. I will check urine sodium and urine creatinine. As mentioned above, the patient is not oliguric at this time. We will monitor urine output closely. If she has evidence of hepatorenal syndrome, we will consider putting her on octreotide drip as well as I gave her midodrine and will consider transferring her to [facility] for further consideration of liver transplantation. I would like to thank Dr. Conklin for allowing me to participate in this patient's care. M MD CARLA MELO/evangelina /[id number] d: 11/08/16 1333 t: 11/09/16 0923, CONSULTATION REPORT
--- NOTE | ~2016-11-08 | HP ---
PATIENT'S NAME: INDIA UMANA [facility] AGE: 36 Y [address] [place] [facility] [place] [address] LOCATION: [facility] ADMIT DATE: 11/08/2016 History & Physical DISCHARGE DATE: FAMILY PHYSICIAN: NAEL JAIME MD ATTENDING PHYSICIAN: Thanh GUZMAN DATE OF SERVICE: ADDENDUM: Problem #8. Anion gap metabolic acidosis secondary to lactic acidosis, to continue with IV fluid therapy and pressor support. We will also start the patient on half-normal with 75 mEq of bicarb to run 100 mL an hour. Addendum for problem #1 for septic shock. We will add Zyvox as patient has therapeutic tap yesterday and because of information we will want to cover MRSA. MEGAN LANDIN MD AD/modl /[id number] D: [id number] T: [id number] HISTORY & PHYSICAL
[~2016-11-08 09:18] MED LIST changes: -B COMPLEX1 EACH PO; -CIPROFLOXACIN750 MG PO; -LOVENOX 10100 MG/1 M; -LOVENOX 10100 MG/1 M SUB-Q; -PROAMATINE5 MG PO; -SLOW-MAG (64 MG1 TAB PO; -THIAMINE HCL100 MG PO
[2016-11-08 09:45] LABS: HEMATOCRIT 28.8 % (33.0-46.0); HEMOGLOBIN 9.6 g/dL (11.0-15.0); MCH 33.9 pg (27.0-34.0); MCHC 33.3 gm/dL (32.0-36.5); MCV 101.8 fl (83.0-98.0); MPV 10.7 fl (9.4-12.4); RBC 2.83 M/uL (3.50-5.50)
[2016-11-08 09:46] LABS: PLATELET COUNT 223 K/uL (150-450); RDW-CV 14.6 % (11.9-14.6); WBC 30.7 K/uL (4.0-11.0)
[2016-11-08 10:01] LABS: INR - (THERAPEUTIC) 1.71 (0.92-1.07); PTT 54 SECONDS (25-32)
[2016-11-08 10:08] LABS: ABSOLUTE NEUTROPHIL CT (ANC) 28.6 K/uL (1.8-7.8); ALBUMIN 2.5 gm/dL (3.5-5.0); BANDED NEUTROPHIL # 3.1 K/uL (0.0-0.1); BANDED NEUTROPHILS % 10 %; CREATININE 1.7 mg/dL (0.5-1.1); LYMPHOCYTE # 0.9 K/uL (0.8-4.0); LYMPHOCYTE % 3 %; MONOCYTE # 1.2 K/uL (0.0-1.0); SEGMENTED NEUTROPHIL # 25.5 K/uL (1.8-7.8); SEGMENTED NEUTROPHIL % 83 %; TOTAL PROTEIN 5.7 g/dL (6.0-8.4)
[2016-11-08 10:09] LABS: ANION GAP 18.5 (10.0-19.0); POTASSIUM 4.5 mMol/L (3.7-5.1); TOTAL BILIRUBIN 6.3 mg/dL (0.0-1.5)
[2016-11-08 10:36] LABS: PERITONEAL FLUID TURBIDITY 1+ (CLEAR)
[2016-11-08 10:59] LABS: BICARBONATE 13.3 mmol/L (18.0-23.0); PCO2 22 mmHg (35-45); PO2 82 mmHg (80-90)
[2016-11-08 11:54] LABS: % PERITONEAL FLUID MONO/MACRO 3 % (0-0); % PERITONEAL FLUID NEUT 76 % (0-25)
[2016-11-08] MEDS ORDERED: CIPROFLOXACIN750 MG PO (14:13)
[2016-11-08 15:19] LABS: BICARBONATE 13.6 mmol/L (18.0-23.0); PCO2 24 mmHg (35-45); PO2 36 mmHg (80-90)
[2016-11-08 15:40] LABS: INR - (THERAPEUTIC) 2.19 (0.92-1.07); PROTIME 23.2 SECONDS (9.8-11.4)
[2016-11-08 15:42] LABS: ALBUMIN 3.3 gm/dL (3.5-5.0); CALCIUM 7.6 mg/dL (8.5-10.5); CREATININE 1.6 mg/dL (0.5-1.1); TOTAL BILIRUBIN 4.9 mg/dL (0.0-1.5); TOTAL PROTEIN 5.6 g/dL (6.0-8.4)
--- NOTE | 2016-11-08 19:33 | NUR ---
Significant Event: Patient admitted to floor from ER at 1320. Patient A/O x3. Neuros intact. Denies N/T at this time. Follows commands. Moves all extremities spontaneously. VSS. Hypotensive. MAPs >65 since arrive to floor. 500 ml NS bolus given for CVP 6. HR in the 60-80s. No edema present. Pulse palpable throughout. Afebrile. Room air with sats in the high 90s. LS clear and diminished. Mena in place draining small amounts of urine. Dr Canales aware of output. SHould increase. Abdominal pain. Loose incontinent stools. Numerous skin issues. See charting. R) IJ triple lumen infusing with no complications. R) AC PIV infusing with no complications. Bedrest at this time. Patient repositions self. Tylenol given for headache and abd pain. Some relief noted. Patient pleasant and cooperative with cares. Follow up: monitor blood pressure and keep MAP>65
[2016-11-09 00:59] LABS: COLOR URINE YELLOW (YELLOW); GLUCOSE URINE NEGATIVE (NEGATIVE); KETONE URINE NEGATIVE (NEGATIVE); LEUKOCYTES URINE 500 /UL (NEGATIVE); NITRITE URINE NEGATIVE (NEGATIVE); PROTEIN URINE 30 mg/dL (NEGATIVE); TURBIDITY URINE CLEAR (CLEAR)
[2016-11-09 01:00] LABS: BILIRUBIN URINE NEGATIVE (NEGATIVE); BLOOD URINE 25 /UL (NEGATIVE); UROBILINOGEN URINE NORMAL (NORMAL)
[2016-11-09 01:03] LABS: BACTERIA URINE FEW (NEGATIVE); WBC URINE 20-50 #/HPF (NEGATIVE)
--- NOTE | 2016-11-09 04:22 | NUR ---
Significant Event: A&Ox3, VSS on levophed gtt at 0.1 mcg/kg/min. Room air. Distended abdomen with skin issues. Multiple bowel movements this shift. IV ABX into right IJ with no complications. RN draw. Low urine output, randhawa patent with 250mls out, MDs aware. Afebrile. Bedrest. Follow up: continue with plan of care.
[2016-11-09 06:12] LABS: INR - (THERAPEUTIC) 2.4 (0.92-1.07); PROTIME 25.4 SECONDS (9.8-11.4)
[2016-11-09 06:21] LABS: ALBUMIN 2.7 gm/dL (3.5-5.0); CREATININE 1.3 mg/dL (0.5-1.1); POTASSIUM 3.4 mMol/L (3.7-5.1); TOTAL PROTEIN 5.1 g/dL (6.0-8.4)
[2016-11-09 06:24] LABS: ANION GAP 16.4 (10.0-19.0); CALCIUM 7.1 mg/dL (8.5-10.5); TOTAL BILIRUBIN 3.8 mg/dL (0.0-1.5)
[2016-11-09 06:30] LABS: MCV 99.5 fl (83.0-98.0); RDW-CV 14.5 % (11.9-14.6)
[2016-11-09 06:31] LABS: HEMATOCRIT 21.1 % (33.0-46.0); HEMOGLOBIN 7.2 g/dL (11.0-15.0); MCHC 34.1 gm/dL (32.0-36.5); PLATELET COUNT 146 K/uL (150-450); RBC 2.12 M/uL (3.50-5.50); WBC 25.8 K/uL (4.0-11.0)
[2016-11-09 07:29] LABS: ABSOLUTE NEUTROPHIL CT (ANC) 22.7 K/uL (1.8-7.8); BANDED NEUTROPHIL # 2.1 K/uL (0.0-0.1); BANDED NEUTROPHILS % 8 %; LYMPHOCYTE # 1.5 K/uL (0.8-4.0); LYMPHOCYTE % 6 %; SEGMENTED NEUTROPHIL # 20.6 K/uL (1.8-7.8); SEGMENTED NEUTROPHIL % 80 %
--- NOTE | 2016-11-09 09:45 | NUR ---
Received a call from Keegan in ICU stating that Dr Damon was going to transfer patient to [facility]. 1035 Called and spoke with Aneta fashion coordinator at [facility]. They have a bed available for [facility]. She will be going to [facility] room 5468. Nurse to nurse report number given to Maggi. Arrangements made with [facility] for [facility] to pick patient up at 1300.
--- NOTE | 2016-11-09 13:02 | NUR ---
Verbal report given for transfer to pillow agent transporting patient and to [facility].
[2017-01-16] MEDS ORDERED: B COMPLEX1 EACH PO (14:59)
[2017-01-16] MEDS ORDERED: SLOW-MAG (64 MG1 TAB PO (15:00)
[2017-01-16] MEDS ORDERED: PROAMATINE5 MG PO ×2 (15:13→15:19)
[2017-01-16] MEDS ORDERED: LOVENOX 10100 MG/1 M SUB-Q (15:15)
[2017-01-16] MEDS ORDERED: THIAMINE HCL100 MG PO (15:20)
[2017-01-25] MEDS ORDERED: LOVENOX 10100 MG/1 M (08:41)
[2017-01-25] MEDS ORDERED: LOVENOX 10100 MG/1 M SUB-Q (08:42)
== END 2016-11-09 13:58 | disposition hospice, home (50) | DRG 871 ==
LOC: GMED 09:18 → GICU 11:43
PROVIDERS: Emergency Medicine; ADMIT Internal Medicine
DX: A41.9 Sepsis, unspecified organism (principal); R65.21 Severe sepsis with septic shock; K76.7 Hepatorenal syndrome; E43 Unspecified severe protein-calorie malnutrition; E87.2 Acidosis; E87.3 Alkalosis; K65.8 Other peritonitis; N17.9 Acute kidney failure, unspecified; E87.1 Hypo-osmolality and hyponatremia; A04.7 Enterocolitis due to Clostridium difficile; K70.30 Alcoholic cirrhosis of liver without ascites; F31.9 Bipolar disorder, unspecified; K72.90 Hepatic failure, unspecified without coma; E87.6 Hypokalemia
CPT/HCPCS: C9113; J0692; J0696; J1720; J2001; J2020; J2354; J2405; J3010; J3480; J7030; J7040; J7050; J7060; P9047

== ENCOUNTER → 2016-11-23 | Outpatient (CLI) | payer MEDICAID ==
[~2016-11-23] MED LIST changes: +B COMPLEX1 EACH PO; +CIPROFLOXACIN750 MG PO; +LOVENOX 10100 MG/1 M; +LOVENOX 10100 MG/1 M SUB-Q; +PROAMATINE5 MG PO; +SLOW-MAG (64 MG1 TAB PO; +THIAMINE HCL100 MG PO
[2016-11-23 14:37] LABS: PERITONEAL FLUID TURBIDITY 3+ (CLEAR)
[2016-11-23 15:37] LABS: % PERITONEAL FLUID MONO/MACRO 24 % (0-0); % PERITONEAL FLUID NEUT 33 % (0-25)
== END | disposition disaster alternative care site (69) ==
LOC: GOPD 11-22 15:30
PROVIDERS: Internal Medicine Gastroenterology
PROC: 0W9G3ZZ Drainage of Peritoneal Cavity, Percutaneous Approach (ICD-10-PCS; principal; 2016-11-23)
DX: R18.8 Other ascites (principal)
CPT/HCPCS: J2001; P9017; P9047

== ENCOUNTER → 2016-11-30 | Outpatient (CLI) | payer MEDICAID ==
[2016-11-30 10:07] LABS: INR - (THERAPEUTIC) 1.55 (0.92-1.07); PROTIME 16.3 SECONDS (9.8-11.4)
== END | disposition disaster alternative care site (69) ==
LOC: LGSMG 09:50
PROVIDERS: Student in an Organized Health Care Education/Training Program
DX: K72.90 Hepatic failure, unspecified without coma (principal); Z01.818 Encounter for other preprocedural examination

== ENCOUNTER → 2017-01-16 | Outpatient (CLI) | payer MEDICAID ==
[2017-01-16 13:05] LABS: PROTIME 12.3 SECONDS (9.8-11.4)
[2017-01-16 13:06] LABS: INR - (THERAPEUTIC) 1.17 (0.92-1.07)
== END ==
LOC: LGSMG 12:52
PROVIDERS: Student in an Organized Health Care Education/Training Program
DX: K74.60 Unspecified cirrhosis of liver (principal); Z01.818 Encounter for other preprocedural examination

== ENCOUNTER → 2017-01-17 | Outpatient (CLI) | payer MEDICAID ==
[2017-01-17 12:27] LABS: HEMOGLOBIN 9.6 g/dL (11.0-15.0); MPV 10.2 fl (9.4-12.4); RDW-CV 15.9 % (11.9-14.6); WBC 4.1 K/uL (4.0-11.0)
[2017-01-17 12:28] LABS: HEMATOCRIT 28.5 % (33.0-46.0); MCH 31.6 pg (27.0-34.0); MCHC 33.7 gm/dL (32.0-36.5); MCV 93.8 fl (83.0-98.0); RBC 3.04 M/uL (3.50-5.50)
== END ==
LOC: GOPD 01-16 12:30
PROVIDERS: Physician Assistant
DX: R18.8 Other ascites (principal); K74.60 Unspecified cirrhosis of liver; K76.9 Liver disease, unspecified; I81 Portal vein thrombosis; K80.20 Calculus of gallbladder without cholecystitis without obstruction
CPT/HCPCS: A9577; J2001; P9047

== ENCOUNTER → 2017-01-24 | Outpatient (CLI) | payer MEDICAID | END | disposition disaster alternative care site (69) | LOC: GPOC 01-23 16:00 | PROC: 0W9G30Z Drainage of Peritoneal Cavity with Drainage Device, Percutaneous Approach (ICD-10-PCS; principal; 2017-01-24) | DX: K74.60 Unspecified cirrhosis of liver (principal); R18.8 Other ascites; D64.9 Anemia, unspecified; I85.00 Esophageal varices without bleeding | CPT/HCPCS: P9047 ==

== ENCOUNTER → 2017-01-25 | Day surgery (SDC) | payer MEDICAID ==
[~2017-01-25] VITALS: Ht 154.9 cm; Wt 47.0 kg
== END ==
LOC: GOPP 08:00 → GEND 08:13 → GOPP 09:00
PROC: 06L34CZ Occlusion of Esophageal Vein with Extraluminal Device, Percutaneous Endoscopic Approach (ICD-10-PCS; principal; 2017-01-25)
PROC: 06L24CZ Occlusion of Gastric Vein with Extraluminal Device, Percutaneous Endoscopic Approach (ICD-10-PCS; 2017-01-25)
DX: I85.00 Esophageal varices without bleeding (principal); K26.9 Duodenal ulcer, unspecified as acute or chronic, without hemorrhage or perforation; K31.89 Other diseases of stomach and duodenum; K72.90 Hepatic failure, unspecified without coma; K74.60 Unspecified cirrhosis of liver; I95.9 Hypotension, unspecified; Z98.890 Other specified postprocedural states; Z87.891 Personal history of nicotine dependence; Z79.52 Long term (current) use of systemic steroids; Z79.899 Other long term (current) drug therapy; Z88.8 Allergy status to other drugs, medicaments and biological substances
CPT/HCPCS: J2001; J3010; J7030

== ENCOUNTER → 2017-02-07 | Outpatient (CLI) | payer MEDICAID ==
[2017-02-07 11:41] LABS: BASOPHIL # 0.1 K/uL (0.0-0.2); BASOPHIL % 1.1 %; EOSINOPHIL # 0.1 K/uL (0.0-0.5); EOSINOPHIL % 1.3 %; HEMATOCRIT 27.9 % (33.0-46.0); HEMOGLOBIN 9.4 g/dL (11.0-15.0); IMMATURE GRANULOCYTE % 0.2 %; LYMPHOCYTE # 1.1 K/uL (0.8-4.0); LYMPHOCYTE % 25.4 %; MCHC 33.7 gm/dL (32.0-36.5); MCV 92.1 fl (83.0-98.0); MONOCYTE # 0.6 K/uL (0.0-1.0); MONOCYTE % 12.5 %; MPV 10.6 fl (9.4-12.4); NEUTROPHIL # (ANC) 2.7 K/uL (1.8-7.8); NEUTROPHIL % 59.5 %; NRBC % 0 /100WBC (0-0.00); PLATELET COUNT 127 K/uL (150-450); RBC 3.03 M/uL (3.50-5.50); RDW-CV 15.8 % (11.9-14.6); WBC 4.5 K/uL (4.0-11.0)
[2017-02-07 11:49] LABS: PROTIME 12.6 SECONDS (9.8-11.4)
[2017-02-07 13:05] LABS: PERITONEAL FLUID TURBIDITY CLEAR (CLEAR)
[2017-02-07 13:59] LABS: % PERITONEAL FLUID MONO/MACRO 16 % (0-0); % PERITONEAL FLUID NEUT 3 % (0-25)
== END | disposition disaster alternative care site (69) ==
LOC: GOPP 11:00
PROVIDERS: Internal Medicine Gastroenterology
PROC: 0W9G3ZX Drainage of Peritoneal Cavity, Percutaneous Approach, Diagnostic (ICD-10-PCS; principal; 2017-02-07)
PROC: BW40ZZZ Ultrasonography of Abdomen (ICD-10-PCS; 2017-02-07)
DX: R18.8 Other ascites (principal); K74.60 Unspecified cirrhosis of liver
CPT/HCPCS: J2001; P9047